=== PATIENT | female | born 1955 | race Caucasian/White ===

== ENCOUNTER 2019-05-26 14:34 | Inpatient (IN) | payer OTHER ==
[2019-05-25 20:00] VITALS: BP 144/83
[~2019-05-26] VITALS: Ht 162.6 cm; Wt 90.7 kg
[2019-05-26 14:41] VITALS: BP 174/92
[2019-05-26 14:59] LABS: ABSOLUTE BASOPHILS 0.1 thou/uL (0.0-0.2); ABSOLUTE EOSINOPHILS 0.4 thou/uL (0.0-0.7); ABSOLUTE LYMPHOCYTES 1.3 thou/uL (0.8-5.3); ABSOLUTE MONOCYTES 0.7 thou/uL (0.0-1.2); BASOPHILS 0.7 %; EOSINOPHILS 4.5 %; HEMATOCRIT 46.8 % (37.0-47.0); MCH 30.2 pg (26.0-34.0); MCHC 34.2 g/dL (28.0-37.0); MCV 88.4 fL (80.0-100.0); MONOCYTES 7.9 %; MPV 7.8 fl. (7.2-11.1); NUCLEATED RBCS 0 /100WBC; PLATELET COUNT* 278 thou/uL (150-400); POLYS 71.9 %; RBC 5.29 mil/uL (4.20-5.00); RDW-CV 14.3 % (10.5-14.5); WBC 8.4 thou/uL (4.0-11.0)
[2019-05-26 15:18] LABS: CALCIUM 8.6 mg/dL (8.5-10.1); CREATININE 1.1 mg/dL (0.6-1.3); POTASSIUM 3.7 mmol/L (3.5-5.1)
[2019-05-26 15:19] LABS: BE -0.6 mmol/L (-2 to +3); PCO2 40.6 mmHg (35.0-45.0); PO2 74.2 mmHg (75.0-100.0); pH 7.393 (7.340-7.450)
[2019-05-26 15:21] LABS: APTT 29.1 Seconds (25.0-31.3); PROTIME 10.4 Seconds (9.20-11.50)
[2019-05-26 15:25] LABS: INFLUENZA A ANTIGEN Negative (Negative); INFLUENZA B ANTIGEN Negative (Negative)
[2019-05-26 15:29] LABS: ALBUMIN 3.5 g/dL (3.4-5.0); TOTAL BILIRUBIN 0.3 mg/dL (<0.1-1.0); TOTAL PROTEIN 8.2 g/dL (6.4-8.2)
[2019-05-26] MEDS ORDERED: PREDNISONE 20 M20 M1 PO (15:57)
[2019-05-26] MEDS ORDERED: VENTOLIN HFA 1818 GM INH (15:57)
[2019-05-26] MEDS ORDERED: ZPAK PO (15:57)
[2019-05-26 18:23] VITALS: BP 153/85
[2019-05-26 20:00] VITALS: BP 144/83
[2019-05-27] VITALS: BP 132/68
[2019-05-27 04:00] VITALS: BP 181/90
[2019-05-27 08:36] VITALS: BP 168/101
--- NOTE | 2019-05-27 10:27 | EKG ---
[place] [address] ELECTROCARDIOGRAM REPORT Name: ERMELINDA LANCASTER Room: [address] ADM IN .R.#: [id number] Admission: 05/26/19 Attend Phys: Jason Freitas Discharge: Date of : 55 Date of Service: 05/26/19 1512 Report #: [id number] THIS REPORT FOR: //name// [facility] ED Test Date: 2019-05-26 Test Time: 15:12:29 Pat Name: ERMELINDA LANCASTER Department: Room: [facility] Gender: F Marker Delivery: ERIK : 1955 Requested By: Camille Garvey Order Number: [id number] MD: Cedric Wilson Measurements Intervals [place] Rate: 104 P: 59 LA: 145 QRS: 7 QRSD: 90 T: 120 QT: 350 QTc: 461 Interpretive Statements Sinus tachycardia Probable left atrial enlargement Borderline repolarization abnormality No previous ECG available for comparison Electronically Signed On 05-27-2019 10:25:50 LETTER CARRIER by Cedric Wilson [email or web address] <ELECTRONICALLY SIGNED> By: Cedric Wilson MD, [facility] 05/27/19 1025 1512 1512 Cedric Wilson MD, [facility] /EPI
[2019-05-27 11:52] VITALS: BP 168/75
[2019-05-27 15:41] LABS: BE -2.3 mmol/L (-2 to +3); PCO2 38.6 mmHg (35.0-45.0); PO2 64.4 mmHg (75.0-100.0); pH 7.381 (7.340-7.450)
[2019-05-27 20:00] VITALS: BP 145/77
[2019-05-28 00:22] VITALS: BP 146/88
[2019-05-28 04:21] VITALS: BP 170/88
[2019-05-28 08:00] VITALS: BP 157/88
[2019-05-28] MEDS ORDERED: MEDROL DOSPAK21 TA1 PO (08:47)
[2019-05-28 10:00] VITALS: BP 157/88
[2019-05-28] MEDS ORDERED: AUGMENTIN 875-1 EACH PO (10:16)
[2019-05-28] MEDS ORDERED: PREDNISONE 10 M10 MG PO (10:16)
[2019-05-28] MEDS ORDERED: ZPAK PO (10:38)
[2019-05-28] MEDS ORDERED: PRINIVIL10 MG PO (10:53)
[2019-05-28 12:07] VITALS: BP 140/66
== END 2019-05-28 13:45 | disposition home or self-care (01) | DRG 189 ==
LOC: M.ERS 14:34 → M.2W 16:23 → M.TBA-ER 16:23 → M.2W 18:17
PROVIDERS: Nurse Practitioner Family; ADMIT Internal Medicine
DX: J96.01 Acute respiratory failure with hypoxia (principal); J40 Bronchitis, not specified as acute or chronic; J98.01 Acute bronchospasm; Z28.21 Immunization not carried out because of patient refusal; Z90.710 Acquired absence of both cervix and uterus; Z82.49 Family history of ischemic heart disease and other diseases of the circulatory system; Z79.899 Other long term (current) drug therapy